=== PATIENT | female | born 1995 | race Caucasian/White ===

== ENCOUNTER 2016-09-03 14:53 | Inpatient (IN) | payer MEDICAID ==
[~2016-09-03] VITALS: Ht 152.4 cm; Wt 40.6 kg
[2016-09-03] MEDS ORDERED: SOD CHLORIDE 0.9% 1,000 ML IV STA ×2 (17:24→20:28)
[2016-09-03] MEDS ORDERED: ONDANSETRON 4 MG INJ IV STA (17:24)
[2016-09-03] MEDS ORDERED: morphine 2 MG INJ IV STA (17:24)
--- NOTE | 2016-09-03 17:33 | ERD ---
ER Documentation Chief Complaint Date/Time DATE: 09/03/16 TIME: 17:28 Chief Complaint mid abdominal pain since last night vomiting twice today HPI This is a 21-year-old female presenting to emergency department for mid epigastric and periumbilical abdominal pain 2 days. Pain started last night and has worsened today. Patient has vomited twice today. No diarrhea. No cough or chest pain. No difficulty breathing or shortness of breath. No fevers or chills. Pain is severe and patient took naproxen this morning however little to no relief. Denies dysuria or hematuria. ROS All systems reviewed and are negative except as per history of present illness. Allergies Allergies: Coded Allergies: No Known Allergy (Unverified , 09/03/16) PMhx/Soc Medical and Surgical Hx: pt denies Medical Hx, pt denies Surgical Hx Physical Exam Vitals Vital Signs Date Time Temp Pulse Resp B/P Pulse Ox O2 Delivery O2 Flow Rate FiO2 09/03/16 14:55 97.8 112 18 117/67 100 Physical Exam Const: Patient is writhing in pain, crying during exam Head: Atraumatic Eyes: Normal Conjunctiva ENT: Normal External Ears, Nose and Mouth. Neck: Full range of motion..~ No meningismus. Resp: Clear to auscultation bilaterally Cardio: Regular rate and rhythm, no murmurs Abd: Soft, non distended. Normal bowel sounds. tender to palpation in all 4 quadrants. Skin: No petechiae or rashes Back: No midline or flank tenderness Ext: No cyanosis, or edema Neur: Awake and alert Psych: Normal Mood and Affect Result Diagram: 09/03/16 1830 09/03/16 1830 Results 24 hrs Laboratory Tests Test 09/03/16 18:30 Alanine Aminotransferase (ALT/SGPT) 19IU/L Albumin 4.6g/dl Albumin/Globulin Ratio 1.31 Alkaline Phosphatase 61IU/L Anion Gap 22 Aspartate Amino Transf (AST/SGOT) 21IU/L Basophils # Pending Basophils % Pending Blood Urea Nitrogen 16mg/dl Calcium Level 10.2mg/dl Carbon Dioxide Level 27mmol/L Chloride Level 101mmol/L Creatinine 0.60mg/dl Direct Bilirubin 0.00mg/dl Eosinophils # Pending Eosinophils % Pending Globulin 3.50g/dl Glucose Level 100mg/dl Hematocrit 42.4% Hemoglobin 14.4g/dl Indirect Bilirubin 1.6mg/dl Lipase 58U/L Lymphocytes # Pending Lymphocytes % Pending Mean Corpuscular Hemoglobin 31.7pg Mean Corpuscular Hemoglobin Concent 33.8g/dl Mean Corpuscular Volume 93.8fl Mean Platelet Volume 8.7fl Monocytes # Pending Monocytes % Pending Neutrophils # Pending Neutrophils % Pending Nucleated Red Blood Cells # Pending Nucleated Red Blood Cells % Pending Platelet Count 13892^3/UL Potassium Level 3.6mmol/L Red Blood Count 4.5210^6/ul Red Cell Distribution Width 12.3% Sodium Level 146mmol/L Total Bilirubin 1.6mg/dl Total Protein 8.1g/dl Urine Bacteria FEW Urine Bilirubin 1+ Urine Clarity SLIGHTLY CLOUDY Urine Color YELLOW Urine Glucose NEGATIVE% Urine Hemoglobin NEGATIVE Urine Ictotest NEGATIVE Urine Ketones 3+ Urine Leukocyte Esterase NEGATIVE Urine Microscopic RBC 0-2/HPF Urine Microscopic WBC 2-5/HPF Urine Mucus MANY Urine Nitrite NEGATIVE Urine Specific [place] 1.015 Urine Squamous Epithelial Cells FEW Urine Total Protein TRACE Urine Urobilinogen 1.0 E.U./dL Urine pH 7.0 White Blood Count 16.010^3/ul Current Medications Medications (Trade) Dose Ordered Sig/Joshua Route PRN Reason Start Time Stop Time Status Last Admin Dose Admin Sodium Chloride (NS) 1,000 ml @ 1,000 mls/hr Q1H STAT IV 09/03/16 17:24 09/03/16 18:23 DC 09/03/16 18:46 Morphine Sulfate (morphine) 2 mg ONCE STAT IV 09/03/16 17:24 09/03/16 17:26 DC 09/03/16 18:47 Ondansetron HCl (Zofran Inj) 4 mg ONCE STAT IV 09/03/16 17:24 09/03/16 17:26 DC 09/03/16 18:46 Morphine Sulfate (morphine) 4 mg ONCE STAT IV 09/03/16 19:20 09/03/16 19:21 DC 09/03/16 19:30 IV Flush 10 ml 10 ml STK-MED ONCE .ROUTE 09/03/16 19:34 09/03/16 19:35 DC 09/03/16 19:41 Sodium Chloride (NS) 100 ml @ ud STK-MED ONCE .ROUTE 09/03/16 19:34 09/03/16 19:35 DC 09/03/16 19:42 Iohexol (Omnipaque 300mg/ ml) 150 ml STK-MED ONCE .ROUTE 09/03/16 19:34 09/03/16 19:35 DC 09/03/16 19:42 NEGRA LEDESMA NP Sep 03, 2016 17:33
--- NOTE | 2016-09-03 18:39 | RADRPT ---
PROCEDURE: US Abdomen Limited. CLINICAL INDICATION: Abdominal pain TECHNIQUE: Multiple real-time longitudinal and transverse images were acquired of the patient's ri t abdomen and retroperitoneum utilizing a curved array transducer. COMPARISON: None FINDINGS: Pancreas: The pancreas is suboptimally visualized in the tail. There is no significant abnormality in the visualized portion. The main pancreatic duct is not dilated. IVC: The inferior vena cava is visualized only in the hepatic segment and demonstrates no abnormali ty. Liver: The liver shows normal shape, parenchymal echogenicity and echotexture. The right hepatic lo be measures 12.6 cm craniocaudal, which is within normal limits. There is no definite focal lesion v isualized in the liver. Bile ducts: The intrahepatic bile ducts are not dilated. Common bile duct measures 2 mm in diamete r, within normal limits. Gallbladder: The gallbladder is unremarkable without cholelithiasis, wall thickening, pericholecyst ic fluid, or sonographic Disla's sign. Kidneys: The right kidney measures 9.3 cm in length. The parenchymal echogenicity and thickness hernandez ear within normal range. No focal lesions are visualized. No hydronephrosis. There is no ascites visualized in the right abdomen. RPTAT: QQ IMPRESSION: Unremarkable ultrasound of the right abdomen. .Rossana Campbell MD, Date Time Electronically viewed and signed by .Rossana Campbell MD, on 09/03/2016 18:38 .T/
[2016-09-03 18:55] LABS: HEMATOCRIT 42.4 % (37.0-47.0); HEMOGLOBIN 14.4 g/dl (12.0-16.0); MEAN CORPUSCULAR HEMOGLOBIN 31.7 pg (29.0-33.0); MEAN CORPUSCULAR HGB CONC 33.8 g/dl (32.0-37.0); MEAN CORPUSCULAR VOLUME 93.8 fl (82.0-101.0); MEAN PLATELET VOLUME 8.7 fl (7.4-10.4); PLATELET COUNT 295 10^3/UL (140-440); RED BLOOD COUNT 4.52 10^6/ul (4.20-5.40); RED CELL DISTRIBUTION WIDTH 12.3 % (11.5-14.5)
[2016-09-03 18:57] LABS: ADD UMIC YES; URINE BILIRUBIN (Dip) 1+ (NEGATIVE); URINE BLOOD (Dip) NEGATIVE (NEGATIVE); URINE COLOR YELLOW (YELLOW); URINE GLUCOSE (Dip) NEGATIVE (NEGATIVE); URINE KETONES (Dip) 3+ (NEGATIVE); URINE LEUKOCYTE ESTERASE (Dip) NEGATIVE (NEGATIVE); URINE NITRITE (Dip) NEGATIVE (NEGATIVE); URINE TOTAL PROTEIN (Dip) TRACE (NEGATIVE); URINE UROBILINOGEN (Dip) 1.0 E.U./dL (0.1-1.0)
[2016-09-03 19:00] LABS: ALBUMIN 4.6 g/dl (3.3-4.9)
[2016-09-03 19:01] LABS: POTASSIUM 3.6 mmol/L (3.5-5.1)
[2016-09-03 19:03] LABS: ALBUMIN/GLOBULIN RATIO 1.31; BILIRUBIN,INDIRECT 1.6 mg/dl (0-1.1); BILIRUBIN,TOTAL 1.6 mg/dl (0.2-1.3); CONDITION 1; CREATININE 0.6 mg/dl (0.44-1.00); LH ANALYZER COMMENTS 1; TOTAL PROTEIN 8.1 g/dl (6.1-8.1)
[2016-09-03 19:04] LABS: CALCIUM 10.2 mg/dl (8.4-10.2)
[2016-09-03 19:13] LABS: ICTOTEST NEGATIVE (NEGATIVE)
[2016-09-03 19:15] LABS: MUCUS,URINE MANY
[2016-09-03 19:16] LABS: BACTERIA,URINE FEW; SQUAMOUS EPITHELIAL CELL,UR FEW; URINE RBCS 0-2 /HPF (0)
[2016-09-03] MEDS ORDERED: morphine 4 MG/ML VIAL IV STA (19:20)
[2016-09-03] MEDS ORDERED: IOHEXOL 300MG/ML 150 ML BTL ONE (19:34)
[2016-09-03] MEDS ORDERED: SOD CHLORIDE 0.9% 100 ML ONE (19:34)
--- NOTE | 2016-09-03 20:12 | RADRPT ---
PROCEDURE: CT Abdomen and Pelvis with Contrast CLINICAL INDICATION: Abdominal pain, vomiting TECHNIQUE: Transaxial images were obtained through the abdomen and pelvis on a multi-slice scanner following the intravenous administration of iodinated contrast. No oral contrast had previously be en given. Sagittal and coronal re-formations were subsequently reconstructed. One or more of the following dose reduction techniques were used: - Automated exposure control. - Adjustment of the mA and/or kV according to patient size. - Use of iterative reconstruction technique. Radiation dose: CTDIvol = 3.91 mGy; DLP = 187.53 mGy-cm. COMPARISON: Right upper quadrant abdominal sonogram done earlier on the same date The previous sonogram was unremarkable except the right kidney was somewhat small. FINDINGS: Lung bases: The visualized lung bases appear unremarkable. Liver: Normal in size and in attenuation. There is no focal lesion. The hepatic veins and portal vei ns appear patent. Gallbladder: The wall is not thickened. No radiopaque stones are identified. Bile ducts: The intra and extrahepatic bile ducts are normal in caliber. Pancreas: Appears normal with no mass or inflammation evident. Spleen: Normal in size with no focal lesion. Adrenals: Normal with no mass identified. Kidneys, ureters and bladder: The kidneys enhance normally and are normal in size and there is no ma ss, pathological calcification, or hydronephrosis evident. There is no perinephric stranding. The ur eters are normal in caliber and no ureteroliths are identified. The bladder is suboptimally distende d and there is a bubble of air seen within the bladder lumen.. Reproductive organs: The uterus deviates slightly to the left of midline. No adnexal mass is eviden t. Stomach, bowel, and mesentery: The stomach appears unremarkable. The small bowel gas pattern reflec ts an ileus. Substantial stool is seen within the right colon. Appendix: There is a dilated tubular structure seen in the pelvis containing an appendicolith measur ing 4 mm in diameter and the smaller appendicoliths more distally, compatible with acute appendiciti s. Peritoneum: There is a small amount of fluid seen within the cul-de-sac extending to the right of mi dline measuring 30 HU. Aorta: Normal in caliber with no aneurysmal dilatation. IVC: Unremarkable. Lymph nodes: No pathologically enlarged nodes are identified. Osseous structures: The osseous elements appear intact. IMPRESSION: 1. Findings most compatible with acute appendicitis with appendicoliths seen within the dilated hernandez endix. 2. Small fluid collection is seen within the cul-de-sac extending to the right which measures 30 HU . A developing abscess cannot be excluded. 3. The bowel gas pattern reflects an ileus. 4. A bubble of air is seen within the bladder lumen that could be iatrogenic. Findings of acute appendicitis were telephoned by Lemuel Power MD to PEÑA Pastor on 09/03/2016 a t 2010 hours. Physician Charlie Date Time Electronically viewed and signed by Physician Charlie on 09/03/2016 20:11 RH/
[2016-09-03] MEDS ORDERED: PIPER-TAZO 3.375 GM IV (PMX) 100 ML IVPB STA (20:20)
[2016-09-03 20:21] LABS: LYMPHOCYTES # 1.1 10^3/ul (0.8-2.9); MONOCYTE # 0.8 10^3/ul (0.3-0.9); NEUTROPHIL # 13.1 10^3/ul (1.6-7.5)
[2016-09-03 20:22] LABS: PLATELET ESTIMATE PLT APPEAR ADEQUATE
--- NOTE | 2016-09-03 20:32 | ERA ---
ER Documentation Chief Complaint Date/Time DATE: 09/03/16 TIME: 20:29 Chief Complaint mid abdominal pain since last night vomiting twice today HPI This is a 21-year-old female with no past medical history that presents to the emergency department complaining of a sudden onset of periumbilical pain that awoke her from her sleep roughly 24 hours prior to arrival. The patient indicated that the pain was 10 out of 10 in intensity. It has been persistent. It began to radiate to the right lower quadrant. She did not take any analgesic medication prior to arrival. She has had 2 episodes of nonbloody nonbilious emesis since the onset of the pain. She has had no diarrhea constipation. She states she has never had any similar abdominal pain in the past. ROS All systems reviewed and are negative except as per history of present illness. Allergies Allergies: Coded Allergies: No Known Allergy (Unverified , 09/03/16) PMhx/Soc Medical and Surgical Hx: pt denies Medical Hx, pt denies Surgical Hx Hx Alcohol Use: No Hx Substance Use: No Hx Tobacco Use: No Physical Exam Vitals Vital Signs Date Time Temp Pulse Resp B/P Pulse Ox O2 Delivery O2 Flow Rate FiO2 09/03/16 14:55 97.8 112 18 117/67 100 Physical Exam Constitutional:Well-developed. Well-nourished. HEENT:Normocephalic. Atraumatic.Pupils were equal round reactive to light. Moist mucous membranes.No tonsillar exudates. Neck: No nuchal rigidity. No lymphadenopathy. No posterior cervical spine tenderness or step-offs. Respiratory: Not using accessory muscles of respiration.Lungs were clear to auscultation bilaterally. No rhonchi. No rales. No wheezing. Cardiovascular: Regular rate regular rhythm.No murmurs. No rubs were appreciated.S1, S2 normal. Distal pulses are palpable 2+ bilaterally. GI: Abdomen was soft. Tenderness in the right lower quadrant over McBurney's point and periumbilical region. Positive psoas sign. Positive obturator sign. Non Distended. No pulsatile abdominal masses or bruits. No rebound. No guarding. Bowel sounds were present and normal. Muscle skeletal: Full range of motion of both the upper and lower extremities bilaterally.Normal muscle tone.No assymetrical calf tenderness or swelling. Skin: No petechia, no purpura. No lesions on the palms or the soles of the feet. No maculopapular rash. NEURO: Patient was alert, awake, orientated x3.No facial droop. Gait observed and normal with no ataxia.Speech had regular rate and rhythm. No focal neurological deficits. Result Diagram: 09/03/16182909/03/161829 Results 24 hrs Laboratory Tests Test 09/03/16 18:30 Alanine Aminotransferase (ALT/SGPT) 19IU/L Albumin 4.6g/dl Albumin/Globulin Ratio 1.31 Alkaline Phosphatase 61IU/L Anion Gap 22 Aspartate Amino Transf (AST/SGOT) 21IU/L Basophils # 10^3/ul Basophils % % Blood Urea Nitrogen 16mg/dl Calcium Level 10.2mg/dl Carbon Dioxide Level 27mmol/L Chloride Level 101mmol/L Creatinine 0.60mg/dl Direct Bilirubin 0.00mg/dl Eosinophils # 10^3/ul Eosinophils % % Globulin 3.50g/dl Glucose Level 100mg/dl Hematocrit 42.4% Hemoglobin 14.4g/dl Indirect Bilirubin 1.6mg/dl Lipase 58U/L Lymphocytes # 1.110^3/ul Lymphocytes % 7.0% Mean Corpuscular Hemoglobin 31.7pg Mean Corpuscular Hemoglobin Concent 33.8g/dl Mean Corpuscular Volume 93.8fl Mean Platelet Volume 8.7fl Monocytes # 0.810^3/ul Monocytes % 5.0% Neutrophils # 13.110^3/ul Neutrophils % 82.0% Nucleated Red Blood Cells # 10^3/ul Nucleated Red Blood Cells % 0.0/100WBC Platelet Count 92105^3/UL Platelet Estimate PLT APPEAR ADEQUATE Potassium Level 3.6mmol/L Red Blood Count 4.5210^6/ul Red Cell Distribution Width 12.3% Sodium Level 146mmol/L Total Bilirubin 1.6mg/dl Total Protein 8.1g/dl Urine Bacteria FEW Urine Bilirubin 1+ Urine Clarity SLIGHTLY CLOUDY Urine Color YELLOW Urine Glucose NEGATIVE% Urine Hemoglobin NEGATIVE Urine Ictotest NEGATIVE Urine Ketones 3+ Urine Leukocyte Esterase NEGATIVE Urine Microscopic RBC 0-2/HPF Urine Microscopic WBC 2-5/HPF Urine Mucus MANY Urine Nitrite NEGATIVE Urine Specific [place] 1.015 Urine Squamous Epithelial Cells FEW Urine Total Protein TRACE Urine Urobilinogen 1.0 E.U./dL Urine pH 7.0 White Blood Count 16.010^3/ul Current Medications Medications (Trade) Dose Ordered Sig/Joshua Route PRN Reason Start Time Stop Time Status Last Admin Dose Admin Sodium Chloride (NS) 1,000 ml @ 1,000 mls/hr Q1H STAT IV 09/03/16 17:24 09/03/16 18:23 DC 09/03/16 18:46 Morphine Sulfate (morphine) 2 mg ONCE STAT IV 09/03/16 17:24 09/03/16 17:26 DC 09/03/16 18:47 Ondansetron HCl (Zofran Inj) 4 mg ONCE STAT IV 09/03/16 17:24 09/03/16 17:26 DC 09/03/16 18:46 Morphine Sulfate (morphine) 4 mg ONCE STAT IV 09/03/16 19:20 09/03/16 19:21 DC 09/03/16 19:30 IV Flush 10 ml 10 ml STK-MED ONCE .ROUTE 09/03/16 19:34 09/03/16 19:35 DC 09/03/16 19:41 Sodium Chloride (NS) 100 ml @ ud STK-MED ONCE .ROUTE 09/03/16 19:34 09/03/16 19:35 DC 09/03/16 19:42 Iohexol 150 ml 150 ml STK-MED ONCE .ROUTE 09/03/16 19:34 09/03/16 19:35 DC 09/03/16 19:42 Piperacillin Sod/ Tazobactam Sod (Zosyn 3.375gm/ 100 ml (Pmx)) 100 ml @ 200 mls/hr ONCE STAT IVPB 09/03/16 20:20 09/03/16 20:49 Procedures/MDM This patient presented to the emergency department with abdominal pain and was seen and evaluated by myself. My differential diagnosis included but was not limited to abdominal aortic aneurysm, appendicitis, pancreatitis, perforated peptic ulcer, perforated viscus, Boerhaaves syndrome or visceral pain such as diverticulitis, DKA, esophagitis, hepatitis or bowel obstruction. The patient was placed on a room service manager, continuous pulse oximetry, and IV access was established by nursing staff. Patient received intravenous morphine and Zofran. CT scan of the abdomen was ordered and reviewed by myself. The radiologist also reviewed the scan and indicated that the patient had findings consistent with appendicitis and a possible development of an early abscess. The patient was started on broad-spectrum antibiotics which included IV Zosyn. The patient was given a liter bolus of 0.9 normal saline. The patient was made n.p.o. I spoke with the surgeon Dr. Santiago who kindly stated he will come to evaluate the patient for an appendectomy. The patient will be admitted in serious condition with an anticipated stay of greater than 2 midnights to the hospitalist. Departure Diagnosis: Primary Impression: Appendicitis Qualified Code: K35.80 - Acute appendicitis, unspecified acute appendicitis type Condition: Serious FELICIABIJAL MENDOZA Sep 03, 2016 20:32
[2016-09-03] MEDS ORDERED: ONDANSETRON 4 MG INJ IV PRN ×2 (22:00→23:30)
[2016-09-03 22:52] VITALS: BP 95/50; RESP 18
[2016-09-03] MEDS ORDERED: morphine 4 MG/ML VIAL IV PRN (23:30)
[2016-09-03] MEDS: DEXTROSE 5%-0.45% NACL 1,000 ML IV SCH (23:45)
[2016-09-04] VITALS (17 sets, daily range): BP systolic 90–112; BP diastolic 50–58; PULSE 72–120; RESP 14–22; Ht 152.4 cm; Wt 40.6 kg
--- NOTE | 2016-09-04 05:01 | HP ---
DATE OF ADMISSION: 09/03/2016 TIME SEEN: 2300. CHIEF COMPLAINT: Abdominal pain. HISTORY OF PRESENT ILLNESS: The patient is a 21-year-old female with no past medical history who pr esented to the emergency department with abdominal pain that started earlier today. Pain was mainly localized just below her epigastric area with radiation to the right lower quadrant. She reported nausea and associated nonbilious, nonbloody emesis. She denied any fever, chills, chest pain, short ness of breath. When she presented to the ER, she was tachycardic with a heart rate of 112. Otherw ise, the rest of her vitals were stable. Laboratory study values show a WBC of 16,000, sodium 146, total bilirubin 1.6. Otherwise, CBC and CMP are within normal limits. Right upper quadrant ultraso und was read as unremarkable. CT abdomen and pelvis, however, shows findings most compatible with a cute appendicitis with appendicolith within the dilated appendix. Also noted was a small fluid zakia ection within the cul-de-sac extending to the right, developing abscess cannot be excluded. Also, a bowel gas pattern reflecting an ileus was noted. The patient was given a dose of Zosyn as well as pain medication and antiemetics and admitted to the med/surg unit. Dr. Santiago, the on-call surgeon, had been consulted by the ER physician. REVIEW OF SYSTEMS: A 12-point review of systems was performed, negative except as mentioned in HPI. PAST MEDICAL HISTORY: None. PAST SURGICAL HISTORY: None. SOCIAL HISTORY: Denied a history of tobacco, alcohol, or illicit drug use. ALLERGIES: NO KNOWN DRUG ALLERGIES. HOME MEDICATIONS: None. PHYSICAL EXAMINATION: VITAL SIGNS: Blood pressure 95/50, heart rate 94, respiratory rate 18, temperature 98.6, oxygen sat uration 100% on room air. GENERAL: She is not in any distress. She is alert and oriented. HEENT: No obvious head deformity. Pupils reactive to light. Extraocular muscles intact. CARDIOVASCULAR: Tachycardic with regular rhythm. LUNGS: Clear. ABDOMEN: Soft. There is tenderness mainly in the right upper quadrant area and the right lower dakota drant area with no guarding, no rigidity. There are positive bowel sounds. EXTREMITIES: No edema. NEUROLOGIC: No focal deficits. WBC: Pertinent positives as mentioned in the HPI. IMAGING: Right upper quadrant ultrasound and CT abdomen and pelvis with results as mentioned in the HPI. IMPRESSION: 1. Acute appendicitis. 2. Abdominal pain, secondary to above. 3. Sepsis, as evidenced by leukocytosis and tachycardia, secondary to appendicitis. PLAN: Keep n.p.o. with IV fluids. We will provide pain medication and antiemetics as needed. She will be continued on antibiotic that was started in the ER. She is currently awaiting a surgical ev aluation. Further workup and management per clinical course. Dictated By: TONYA VELASQUEZ/DALIA Conf#: [id number] DID#: [id number]
[2016-09-04 06:15] LABS: BASOPHILS % 0.2 % (0.0-2.0); EOSINOPHILS % 0.2 % (0.0-7.0); HEMATOCRIT 31.2 % (37.0-47.0); HEMOGLOBIN 10.8 g/dl (12.0-16.0); LYMPHOCYTES # 1.5 10^3/ul (0.8-2.9); LYMPHOCYTES % 10.9 % (15.0-51.0); MEAN CORPUSCULAR HEMOGLOBIN 32.3 pg (29.0-33.0); MEAN CORPUSCULAR HGB CONC 34.5 g/dl (32.0-37.0); MEAN CORPUSCULAR VOLUME 93.7 fl (82.0-101.0); MEAN PLATELET VOLUME 8.7 fl (7.4-10.4); MONOCYTE # 0.4 10^3/ul (0.3-0.9); MONOCYTES % 3.2 % (0.0-11.0); NEUTROPHIL # 11.9 10^3/ul (1.6-7.5); NEUTROPHILS % 85.5 % (39.0-77.0); PLATELET COUNT 235 10^3/UL (140-440); RED BLOOD COUNT 3.33 10^6/ul (4.20-5.40); RED CELL DISTRIBUTION WIDTH 12.4 % (11.5-14.5); UNCORRECTED WBC 13.9 10^3/ul (4.8-10.8); WHITE BLOOD COUNT 13.9 10^3/ul (4.8-10.8)
[2016-09-04 06:21] LABS: CONDITION 1
[2016-09-04] MEDS: PIPER-TAZO 3.375 GM IV (PMX) 100 ML IVPB SCH ×3 (06:39→13:17)
[2016-09-04 06:44] LABS: POTASSIUM 3.8 mmol/L (3.5-5.1)
[2016-09-04 06:46] LABS: ALBUMIN/GLOBULIN RATIO 1.15; BILIRUBIN,INDIRECT 1.1 mg/dl (0-1.1); BILIRUBIN,TOTAL 1.1 mg/dl (0.2-1.3); CREATININE 0.6 mg/dl (0.44-1.00); TOTAL PROTEIN 5.6 g/dl (6.1-8.1)
[2016-09-04] MEDS: DEXTROSE 5%-0.45% NACL 1,000 ML IV SCH (09:30)
--- NOTE | 2016-09-04 11:17 | CONS ---
[facility] INITIAL INPATIENT CONSULTATION NOTE DATE OF CONSULTATION: 09/04/2016 PLACE OF SERVICE: [facility], 6th floor ASSESSMENT AND PLAN: A very pleasant otherwise healthy 21-year-old young lady presenting with acute appendicitis. I have recommended laparoscopic, possible open appendectomy and I obtained the patient's consent for the operation. With above assessment, I have recommend the followin. To the operating room for above. Thank you again for allowing us to participate in the care of this very pleasant lady and I am certain her wonderful family. If there are any questions , please call me at [phone]. TOTAL VISIT TIME: 45 minutes of which more than half was spent in [id number] discussion with the patient as well as coordination of care between multiple physicians and providers. DATE OF ADMISSION: 09/03/2016 UPDATED CLINICAL SUMMARY: A very pleasant 21-year-old otherwise healthy young lady without significant known comorbidities presented to [facility] Emergency Department and was admitted after diagnosis of acute appendicitis supported by elevated white blood cell count 16.[address] of the abdomen and pelvis showing dilated tubular structure in the pelvis containing an appendicolith measuring 4 mm in diameter and the small appendicolith more distally compatible with acute appendicitis. COMORBIDITIES: None. HISTORY OF PRESENT ILLNESS: The patient is a very pleasant otherwise healthy 21 -year-old young lady admitted with acute appendicitis. I was kindly asked to consult. The patient reported abdominal pain of 1 day duration associated with 2 episodes of vomiting. No prior histories of this type of pain in the past and only other surgery was on her left wrist. No other major complaints. ALLERGIES: NO KNOWN DRUG ALLERGIES. HOME MEDICATIONS: None. 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 No heavy lifting involved at work. No smoking, drinking, or intravenous drug use. FAMILY HISTORY: No significant medical, surgical or oncologic issues reported in the family. REVIEW OF SYSTEMS: Other than the above-mentioned, there are no other pertinent positives or pertinent negatives in a complete 14-point review of systems. PHYSICAL EXAMINATION: GENERAL: The patient appears to be a very pleasant young lady of descent, appearing stated age, lying in bed comfortably and in no acute distress. BMI 20.2. VITAL SIGNS: Temperature is 98.9 and the rest of the vital signs are stable. HEENT: Normocephalic and atraumatic. Extraocular muscles and hearing are grossly intact bilaterally and symmetrically. Sclerae are nonicteric. Oral cavity is clear; oral mucosa appeared to be pink and moist. Dentition: good. NECK: Supple. There is no lymphadenopathy or JVD. There is no submental, submandibular or supraclavicular lymphadenopathy. CHEST: Rises symmetrically with each breath; patient is breathing comfortably. There are no audible wheezes, rales or rhonchi on the gross exam. HEART: Pulse is regular and palpable on the left wrist. Capillary refill was normal. Carotid pulses are palpable bilaterally and symmetrically in the neck. EXTREMITIES: Lower extremities contain no pitting edema around the ankles bilaterally and symmetrically. ABDOMEN: Soft, nondistended, and mildly tender to palpation, mainly in the right lower quadrant. No peritoneal signs or guarding. SKIN: Appears to be pink and feels warm to touch. NEUROLOGIC: Awake, alert, and follows commands appropriately. LABORATORY DATA: Reviewed above. IMAGING: Reviewed above. Note that I personally reviewed those images and I agree in general with their overall reported findings. Dictated By: KAYLI DUNAWAY/DALIA Conf#: [id number] DID#: [id number] AYANA
[2016-09-04] MEDS ORDERED: BUPIVACAINE 0.25%/EPI (SDV) 30 ML INJ INJ ONE (13:55)
[2016-09-04] MEDS ORDERED: ROCURONIUM 50 MG INJ ONE (13:56)
[2016-09-04] MEDS ORDERED: PROPOFOL 0 ML ONE (13:56)
[2016-09-04] MEDS ORDERED: METOCLOPRAMIDE 10 MG INJ ONE (13:56)
[2016-09-04] MEDS ORDERED: MIDAZOLAM 1 MG/ML 2 ML INJ ONE (13:56)
[2016-09-04] MEDS ORDERED: KETOROLAC 30 MG INJ ONE (13:57)
[2016-09-04] MEDS ORDERED: NEOSTIGMINE 3 MG/3 ML SYRINGE ONE (13:59)
[2016-09-04] MEDS ORDERED: GLYCOPYRROLATE 0.4 MG INJ ONE (13:59)
[2016-09-04] MEDS ORDERED: ROPIVACAINE 0.5 % 30 ML VIAL ONE (14:13)
[2016-09-04] MEDS ORDERED: PHENYLephrine (100 MCG/ML) 5ML SYG ONE (14:24)
[2016-09-04] MEDS ORDERED: ETOMIDATE 20 MG INJ ONE (14:42)
[2016-09-04] MEDS ORDERED: HYDROmorphONE (0.2 MG/ML) 10ML SYG IV PRN ×3 (15:00)
[2016-09-04] MEDS ORDERED: MEPERIDINE 25 MG INJ IV PRN (15:00)
[2016-09-04] MEDS ORDERED: METOCLOPRAMIDE 10 MG INJ IV PRN (15:00)
[2016-09-04] MEDS ORDERED: ONDANSETRON 4 MG INJ IV PRN (15:00)
[2016-09-04] MEDS ORDERED: DIPHENHYDRAMINE 50 MG INJ IV PRN (15:00)
--- NOTE | 2016-09-04 15:48 | PN ---
Date/Time of Note Date/Time of Note DATE: 09/04/16 TIME: 15:47 Assessment/Plan VTE Prophylaxis VTE Prophylaxis Intervention: SCD's Lines/Catheters IV Catheter Type (from Nrsg): Peripheral IV Assessment/Plan Assessment/Plan 1. acute appendicitis, s/p lap appendectomy 09/04/2016, stable, follow up with surgery Subjective 24 Hr Interval Summary Free Text/Dictation patient is seen in recovery. no distress, normal vital signs. Exam/Review of Systems Vital Signs Vitals Vital Signs Date Time Temp Pulse Resp B/P Pulse Ox O2 Delivery O2 Flow Rate FiO2 09/04/16 10:37 98.3 89 20 96/55 100 Room Air Intake and Output 09/03/16 09/03/16 09/04/16 15:00 23:00 07:00 Intake Total 600 ml Balance 600 ml Exam Constitutional: alert, oriented, well developed Psych: nl mood/affect, no complaints Head: atraumatic, normocephalic Eyes: EOMI, PERRL, nl conjunctiva, nl sclera ENMT: nl external ears & nose, nl lips & teeth, nl nasal mucosa & septum Neck: non-tender, supple Respiratory: clear to auscultation, normal air movement, No congested cough, No crackles/rales, No diminished breath sounds, No intercostal retraction, No labored breathing, No other, No respirations, No tactile fremitus, No wheezing Cardiovascular: nl pulses, regular rate and rhythm, No S3, No S4, No bruits, No diastolic murmur, No edema, No gallop, No irregular rhythm, No jugular venous distention (JVD), No murmurs/extra sounds, No other, No rub, No systolic murmur Gastrointestinal: soft, tender (diffuse) Musculoskeletal: nl extremities to inspection Extremities: normal pulses, No calf tenderness, No clubbing, No cyanosis, No edema, No other, No palpable cord, No pitting pedal edema, No tenderness Neurological: [employer] II-XII intact, nl mental status, nl speech, nl strength Skin: nl turgor, rash or lesions Lymph: nl lymph nodes Results Result Diagram: 09/04/16 0530 09/04/16 0530 Results 24 hrs Laboratory Tests Test 09/03/16 18:30 09/04/16 05:30 Alanine Aminotransferase (ALT/SGPT) 19 21 Albumin 4.6 3.0 #L Albumin/Globulin Ratio 1.31 1.15 Alkaline Phosphatase 61 36 L Anion Gap 22 H 13 # Aspartate Amino Transf (AST/SGOT) 21 17 Basophils # 0.0 Basophils % 0.2 Blood Urea Nitrogen 16 10 Calcium Level 10.2 8.0 L Carbon Dioxide Level 27 25 Chloride Level 101 105 Creatinine 0.60 0.60 Direct Bilirubin 0.00 0.00 Eosinophils # 0.0 Eosinophils % 0.2 Globulin 3.50 H 2.60 Glucose Level 100 117 Hematocrit 42.4 31.2 #L Hemoglobin 14.4 10.8 #L Indirect Bilirubin 1.6 H 1.1 Lipase 58 Lymphocytes # 1.1 1.5 Lymphocytes % 7.0 L 10.9 L Mean Corpuscular Hemoglobin 31.7 32.3 Mean Corpuscular Hemoglobin Concent 33.8 34.5 Mean Corpuscular Volume 93.8 93.7 Mean Platelet Volume 8.7 8.7 Monocytes # 0.8 0.4 Monocytes % 5.0 3.2 Neutrophils # 13.1 H 11.9 H Neutrophils % 82.0 H 85.5 H Nucleated Red Blood Cells # 0.0 Nucleated Red Blood Cells % 0.0 0.0 Platelet Count 295 235 # Platelet Estimate PLT APPEAR ADEQUATE Potassium Level 3.6 3.8 Red Blood Count 4.52 3.33 #L Red Cell Distribution Width 12.3 12.4 Sodium Level 146 H 139 Total Bilirubin 1.6 H 1.1 Total Protein 8.1 5.6 #L Urine Bacteria FEW Urine Bilirubin 1+ H Urine Clarity SLIGHTLY CLOUDY Urine Color YELLOW Urine Glucose NEGATIVE Urine Hemoglobin NEGATIVE Urine Ictotest NEGATIVE Urine Ketones 3+ H Urine Leukocyte Esterase NEGATIVE Urine Microscopic RBC 0-2 Urine Microscopic WBC 2-5 Urine Mucus MANY Urine Nitrite NEGATIVE Urine Specific Eleva 1.015 Urine Squamous Epithelial Cells FEW Urine Total Protein TRACE Urine Urobilinogen 1.0 E.U./dL Urine pH 7.0 White Blood Count 16.0 H 13.9 H Medications Medications Current Medications Dextrose/Sodium Chloride (D5-1/2ns) 1,000 ml @ 100 mls/hr Q10H IV Last administered on 09/03/16 23:45; Admin Dose 100 MLS/HR; Start 09/03/16 at 23:30 Morphine Sulfate (morphine) 4 mg Q4H PRN IV PAIN; Start 09/03/16 at 23:30 Ondansetron HCl (Zofran Inj) 4 mg Q6H PRN IV NAUSEA AND/OR VOMITING; Start 09/03 at 23:30 Influenza Virus Vaccine 0.5 ml 0.5 ml ONCE ONCE IM* ; Start 09/05/16 at 09:00; Stop 09/05/16 at 09:01 Piperacillin Sod/ Tazobactam Sod (Zosyn 3.375gm/ 100 ml (Pmx)) 100 ml @ 200 mls /hr Q6 IVPB Last administered on 09/04/16t 13:17; Admin Dose 200 MLS/HR; Start 09/04/16 at 06:00 SAIGE CURRY MD Sep 04, 2016 15:48
--- NOTE | 2016-09-04 16:19 | OPR ---
Date/Time of Note Date/Time of Note DATE: 09/04/16 TIME: 16:19 Operative Report Operative Findings [facility] INPATIENT OPERATIVE NOTE PLACE OF SERVICE: [facility] DATE OF SURGERY: 09/04/16 PREOPERATIVE DIAGNOSIS: 1. Acute appendicitis POSTOPERATIVE DIAGNOSIS: 1. Acute appendicitis OPERATION: 1. Laparoscopic appendectomy SURGEON: Kayli Santiago M.D. FINGERPRINT CLASSIFIER: [place] ANESTHESIA: General endotracheal tube anesthesia ANESTHESIOLOGIST: Maxine Nunez M.D. BRIEF SUMMARY: An otherwise uncomplicated laparoscopic appendectomy was performed with findings of non-perforated appendicitis. BRIEF HISTORY: The patient is a very pleasant otherwise healthy 21-year-old young lady who was admitted through the emergency department at [facility] on 09/04/2016 with signs and symptoms consistent with acute appendicitis as supported by her history and physical, elevated white blood cell count as well as CT findings. I met with the patient and family and counseled them regarding the possible options of treatment, and I strongly suggested a laparoscopic, possible open appendectomy. We reviewed the operation in detail as well as the risks, benefits, alternatives, and expected outcomes of this operation. After careful consideration of all the risks, benefits, and alternatives, the patient and family appeared to understand those risks and wished to proceed with surgery. For a detailed report of my consultation with patient and family, please refer to my separate consultation note. STATEMENT OF THE INFORMED CONSENT: The patient and family appeared to understand the risks of the operation to include, but not be limited to risk of postoperative pain and scar tissue, possible infection or bleeding requiring other interventions such as opening the wound, placement of drainage catheters, or other operative interventions; possible injury to surrounding to structures including bowel, bladder, bile duct, or blood vessels, or solid organs such as liver, kidney, or pancreas requiring other interventions or procedures; possible leakage of bowel from anastomotic sites or suture lines causing significant increase in morbidity and mortality and requiring multiple interventions including but not limited to, placement of drainage catheters, imaging studies, as well as operative interventions; possible other source of sepsis such as urinary tract infections or pneumonias, or other sources of potentially life threatening problems such as deep venous thrombus formation causing pulmonary embolism, myocardial arrhythmias and infarctions, and even . After careful consideration of all their options, the patient and family appeared to understand and wished to proceed with surgery. DESCRIPTION OF PROCEDURE: After obtaining informed consent, the patient was brought into the operating room and was placed in a normal supine position, where successful general endotracheal tube anesthesia was performed. Intravenous access was already in place and intravenous antimicrobials had been appropriately chosen and dosed prior to the operation. The patient's abdominal skin was prepped and draped from the nipple line down to the level of the upper thighs in the usual sterile fashion. We then called a surgical time-out where the patient's identification, date of , nature of the operation, allergies , presence of intravenous antimicrobials, presence of needed equipment, and any other concerns were reviewed and agreed upon by all members of the operating room team. We then started the operation by placing a 5 mm skin incision in the left lower quadrant and then introduced a 5 mm [employer] trocar into the peritoneal space, visualizing all the layers of the abdominal wall as we entered. Note that there was no indication of any injury to underlying structures with our entry into the peritoneal space. We insufflated the abdominal cavity to a maximum pressure of 15 mmHg and again inspected the area of insertion and ensured no obvious injury to underlying structures prior to inspecting the abdominal cavity and showing no obvious pus, bowel contents, or other abnormal features. We could not see the appendix very well. We, therefore, injected the future sites of our other trocars with 0.25% Marcaine with epinephrine and placed a 5 mm [employer] trocar into the midline suprapubic area, taking care not to injure the bladder. Note the patient had a Smith catheter placed in the operating room. We also placed a 12 mm trocar in the umbilical midline area , all under direct visualization. With our instruments in place, we had excellent visualization and access to the right lower quadrant. We then identified the appendix, which appeared to be long and located on the medial aspect of the abdominal cavity as opposed to the lateral aspect. There was a small area of necrosis approximately 1 cm away from the base of the appendix. There was also another area of necrosis more distally near the tip of the appendix. The base itself appeared to be healthy. There was no evidence of perforation. I then went ahead and used judicious amount of cautery as well as mostly blunt dissection to circumferentially isolate the base of the appendix and then transected this using one firing of the white load of the Endo-OLLIE stapler. We also repeated the firing on the mesentery of the appendix and completely disconnected the organ from the colon, delivered this out through the 12 mm trocar site inside of an EndoCatch bag without having to enlarge the fascial defect as well as without contaminating the wound. The specimen was sent to Pathology for further analysis. We then ensured adequate hemostasis and bile stasis, removed all our equipment including the pneumoperitoneum from the abdominal cavity prior to closing the infraumbilical fascia with 1 figure-of- eight 0 Vicryl suture on a UR-6 needle, washing the wounds with copious amounts of normal saline, injecting the initial insertion point of the trocar with 0.25 % Marcaine with epinephrine, and then closing the skin using interrupted 4-0 Monocryl sutures. Light dressing was then applied. At the end of the operation, both the sponge count and needle count were reportedly correct x2. The patient tolerated the procedure without any reported complications. ESTIMATED BLOOD LOSS: Less than 10 mL. BLOOD OR BLOOD PRODUCT TRANSFUSIONS: None to my knowledge. SPECIMENS: 1. Appendix COMPLICATIONS: None. DISPOSITION: Recovery area. Disclaimer: Inadvertent spelling and grammatical errors are likely due to EHR/ dictation software use and do not reflect on the quality of delivered patient care. KAYLI SANTIAGO M.D. Sep 04, 2016 16:19
[2016-09-04] MEDS ORDERED: NA PHOSPHATE/BIPHOS 133 ML ENEMA PR PRN (16:30)
[2016-09-04] MEDS ORDERED: BISACODYL 10 MG SUPP PR PRN (16:30)
[2016-09-04] MEDS ORDERED: HYDROCODONE/APAP (5/325) TAB PO PRN ×2 (16:30)
[2016-09-04] MEDS ORDERED: HYDROmorphONE 1 MG/ML SYG IV PRN ×2 (16:30)
[2016-09-04] MEDS ORDERED: DOCUSATE SODIUM 100 MG CAP PO PRN (16:30)
[2016-09-04] MEDS: D5W-0.45 NACL + KCL 20 MEQ 1,000 ML IV SCH (17:31)
[2016-09-05] MEDS: D5W-0.45 NACL + KCL 20 MEQ 1,000 ML IV SCH ×2 (02:19→03:57)
[2016-09-05 02:59] VITALS: BP 99/57; RESP 18
[2016-09-05 06:01] VITALS: BP 99/59; RESP 18
[2016-09-05 06:45] LABS: BASOPHILS % 0.3 % (0.0-2.0); EOSINOPHILS # 0.1 10^3/ul (0.0-0.5); EOSINOPHILS % 0.8 % (0.0-7.0); HEMOGLOBIN 9.7 g/dl (12.0-16.0); LYMPHOCYTES # 1.6 10^3/ul (0.8-2.9); LYMPHOCYTES % 16.1 % (15.0-51.0); MEAN CORPUSCULAR HEMOGLOBIN 32.8 pg (29.0-33.0); MEAN CORPUSCULAR HGB CONC 34.8 g/dl (32.0-37.0); MEAN CORPUSCULAR VOLUME 94.2 fl (82.0-101.0); MEAN PLATELET VOLUME 8.9 fl (7.4-10.4); MONOCYTE # 0.5 10^3/ul (0.3-0.9); NEUTROPHIL # 7.6 10^3/ul (1.6-7.5); NEUTROPHILS % 77.8 % (39.0-77.0); PLATELET COUNT 206 10^3/UL (140-440); RED BLOOD COUNT 2.97 10^6/ul (4.20-5.40); RED CELL DISTRIBUTION WIDTH 12.4 % (11.5-14.5); UNCORRECTED WBC 9.8 10^3/ul (4.8-10.8); WHITE BLOOD COUNT 9.8 10^3/ul (4.8-10.8)
[2016-09-05 06:50] LABS: POTASSIUM 3.3 mmol/L (3.5-5.1)
[2016-09-05 06:53] LABS: CREATININE 0.61 mg/dl (0.44-1.00)
[2016-09-05 06:54] LABS: CALCIUM 8.1 mg/dl (8.4-10.2)
[2016-09-05 07:08] VITALS: BP 95/53; RESP 18
[2016-09-05 07:20] LABS: CONDITION 1
[2016-09-05] MEDS ORDERED: INFLUENZA VIRUS VACCINE 0.5 ML (DISPENSING) IM* ONE (09:00)
[2016-09-05] MEDS ORDERED: FAMOTIDINE 20 MG INJ IV SCH (09:00)
[2016-09-05] MEDS ORDERED: ENOXAPARIN 40 MG/0.4 ML SYG SC SCH (09:00)
[2016-09-05] MEDS ORDERED: POTASSIUM CHLORIDE (SR) 20 MEQ TAB PO STA (11:14)
[2016-09-05] MEDS ORDERED: HYDR-3498 PO (11:19)
--- NOTE | 2016-09-05 11:25 | DS ---
Date/Time of Note Date/Time of Note DATE: 09/05/16 TIME: 11:21 Discharge Summary Admission/Discharge Info Admit Date/Time Sep 03, 2016 at 21:36 Discharge Date/Time Final Diagnosis 1. Acute appendicitis, s/p lap appendectomy 09/04/2016, stable, follow up with surgery Patient Condition: Stable Hospital Course The patient is a 21-year-old female with no past medical history who presented to the emergency department with abdominal pain that started earlier today. Pain was mainly localized just below her epigastric area with radiation to the right lower quadrant. She reported nausea and associated nonbilious, nonbloody emesis. She denied any fever, chills, chest pain, shortness of breath. When she presented to the ER, she was tachycardic with a heart rate of 112. Otherwise, the rest of her vitals were stable. Laboratory study values show a WBC of 16,000, sodium 146, total bilirubin 1.6. Otherwise, CBC and CMP are within normal limits. Right upper quadrant ultrasound was read as unremarkable. CT abdomen and pelvis, however, shows findings most compatible with acute appendicitis with appendicolith within the dilated appendix. Also noted was a small fluid collection within the cul-de-sac extending to the right , developing abscess cannot be excluded. Also, a bowel gas pattern reflecting an ileus was noted. The patient was given a dose of Zosyn as well as pain medication and antiemetics and admitted to the med/surg unit. Dr. Santiago, the on-call surgeon, had been consulted by the ER physician. Patient had lap appendectomy on 09/04/2016 without complication. Patient tolerates diet, passing gas. She will be discharged and is instructed to follow up with Dr. Santiago in office. Follow-up Plan follow up with Dr. Santiago in one week Pending Labs Laboratory Tests Test 09/05/16 05:35 Anion Gap 10 (8-16) Basophils # 0.010^3/ul (0.0-0.1) Basophils % 0.3% (0.0-2.0) Blood Urea Nitrogen 3mg/dl (7-20) Calcium Level 8.1mg/dl (8.4-10.2) Carbon Dioxide Level 26mmol/L (21-31) Chloride Level 105mmol/L (97-110) Creatinine 0.61mg/dl (0.44-1.00) Eosinophils # 0.110^3/ul (0.0-0.5) Eosinophils % 0.8% (0.0-7.0) Glucose Level 108mg/dl (70-220) Hematocrit 28.0% (37.0-47.0) Hemoglobin 9.7g/dl (12.0-16.0) Lymphocytes # 1.610^3/ul (0.8-2.9) Lymphocytes % 16.1% (15.0-51.0) Mean Corpuscular Hemoglobin 32.8pg (29.0-33.0) Mean Corpuscular Hemoglobin Concent 34.8g/dl (32.0-37.0) Mean Corpuscular Volume 94.2fl (82.0-101.0) Mean Platelet Volume 8.9fl (7.4-10.4) Monocytes # 0.510^3/ul (0.3-0.9) Monocytes % 5.0% (0.0-11.0) Neutrophils # 7.610^3/ul (1.6-7.5) Neutrophils % 77.8% (39.0-77.0) Nucleated Red Blood Cells # 0.010^3/ul (0.0-0.0) Nucleated Red Blood Cells % 0.0/100WBC (0.0-0.0) Platelet Count 69063^3/UL (140-440) Potassium Level 3.3mmol/L (3.5-5.1) Red Blood Count 2.9710^6/ul (4.20-5.40) Red Cell Distribution Width 12.4% (11.5-14.5) Sodium Level 138mmol/L (135-144) White Blood Count 9.810^3/ul (4.8-10.8) SAIGE CURRY MD Sep 05, 2016 11:25
--- NOTE | 2016-09-05 20:27 | PN ---
Date/Time of Note Date/Time of Note DATE: 09/05/16 TIME: 08:24 Assessment/Plan Lines/Catheters IV Catheter Type (from Nrs): Peripheral IV Assessment/Plan Assessment/Plan [facility] Progress Note Date of Service: 09/05/16 Today's Impression & Plan: Overall doing well post op without major issues. No major wound problems. With above assessment, I've recommended the following for today: 1. D/c home 2. Instructions: Please call [phone] if any of fever, nausea, vomiting, discharge from wound , wound redness, increase or sudden pain, blood in stool or vomit, or any other unusual signs or symptoms. Also, please call the same number in a few days to schedule an appointment for your follow up visit. Patient may remove dressings tomorrow. Showers OK starting tomorrow. No swimming , hot tub or bath for 2 weeks. No lifting more than 25 lbs for 8 weeks. Thank you again for your great care of this very pleasant patient and wonderful family. If there are any questions, please feel free to call me at [phone]. TOTAL VISIT TIME: 20 minutes of which more than half was spent in [id number] discussion with the patient, possibly including family, as well as coordination of care between multiple physicians and providers. Disclaimer: Inadvertent spelling or grammatical errors are likely due to EHR/ dictation software use and do not reflect on the overall quality of patient care. Updated Clinical Summary: The patient is a very pleasant otherwise healthy 21-year-old young lady who was admitted through the emergency department at [facility] on 09/04 with signs and symptoms consistent with acute appendicitis as supported by her history and physical, elevated white blood cell count as well as CT findings. S/p lap appy 09/05/16. Comorbidities: 1. Acute appendicitis. S/p lap appy 09/05/16. Subjective: No major events or complaints overnight; no major abd pain and under control with medications; no n/v/d; no sob or cp; + flatus; - BM; - activity Objective: Vitals: See below Exam: GENERAL: On exam, the patient was laying in bed and appeared to be comfortable and in no acute distress. ABDOMEN: Soft, nontender and nondistended. Incision dressings are clean, dry and intact without any evidence of erythema, edema, discharge, or hernia. There are no peritoneal signs or guarding. SKIN: Skin appears to be pink and feels warm to touch. NEUROLOGIC: Patient is awake, alert, and follows commands appropriately. Exam/Review of Systems Vital Signs Vitals Vital Signs Date Time Temp Pulse Resp B/P Pulse Ox O2 Delivery O2 Flow Rate FiO2 09/05/16 07:08 98.5 84 18 95/53 99 09/04/16 17:35 Room Air 09/04/16 15:46 10.0 Intake and Output 09/04/16 09/04/16 09/05/16 15:00 23:00 07:00 Intake Total 100 ml 2700 ml 1180 ml Output Total 205 ml Balance 100 ml 2495 ml 1180 ml Results Result Diagram: 09/05/16 0535 09/05/16 0535 KAYLI RICHARD M.D. Sep 05, 2016 20:27
[2016-09-06] MEDS ORDERED: NA PHOSPHATE/BIPHOS 133 ML ENEMA PR SCH (21:00)
[2016-09-06] MEDS ORDERED: DOCUSATE SODIUM 100 MG CAP PO SCH (21:00)
[2016-09-06] MEDS ORDERED: BISACODYL 10 MG SUPP PR SCH (21:00)
== END 2016-09-05 13:15 | disposition home or self-care (01) | DRG 340 ==
LOC: FTE 14:53 → MS2 21:36
PROVIDERS: ADMIT Internal Medicine; ATTEND Internal Medicine
PROC: 0DTJ4ZZ Resection of Appendix, Percutaneous Endoscopic Approach (ICD-10-PCS; principal; 2016-09-03)
DX: K35.3 Acute appendicitis with localized peritonitis (principal)
CPT/HCPCS: 36415; 74177; 76705; 80048; 80053; 81001; 81003; 83690; 85025; 88304; 90686; 96374; 96375; 96376; J1170; J1650; J1885; J2250; J2270; J2370; J2405; J2543; J2710; J2765; J2795; J3480; J7030; J7042; Q9967